=== PATIENT | male | born 2000 | race Caucasian/White ===

== ENCOUNTER 2024-03-31 02:03 | Emergency (ER) | payer MEDICAID ==
[~2024-03-31] VITALS: Ht 160 cm; Wt 78.0 kg
[2024-03-31 02:19] VITALS: TEMP 98.4; O2SAT 98
[2024-03-31 02:20] VITALS: BP 216/72; PULSE 79; RESP 16; O2SAT 97
== END 2024-03-31 05:36 | disposition left against medical advice (07) ==
LOC: ER 02:03
DX: S80.812A Abrasion, left lower leg, initial encounter (principal); Z53.21 Procedure and treatment not carried out due to patient leaving prior to being seen by health care provider; W18.30XA Fall on same level, unspecified, initial encounter; Y93.89 Activity, other specified; Y92.89 Other specified places as the place of occurrence of the external cause; Y99.8 Other external cause status